=== PATIENT | female | born 1985 | race Caucasian/White ===

== ENCOUNTER → 2016-04-02 | Outpatient (CLI) | payer OTHER ==
[2016-04-02 15:08] LABS: CH 30.9; CHCM 33.8; HCT 43.1 % (34.0-46.0); HDW 2.53; HGB 14.2 gm/dL (11.4-16.0); MCH 30.2 pg (25.0-35.0); MCHC 32.9 g/dL (31.0-37.0); MCV 91.7 fL (80.0-100.0); Mean Platelet Volume 6.1; RDW 12.6 % (11.5-15.5); WBC 7.7 k/uL (3.8-10.6)
--- NOTE | 2016-04-02 15:12 | US ---
EXAMINATION TYPE: US OB <= 14 wk fetus DATE OF EXAM: 04/02/2016 2:35 PM COMPARISON: NONE CLINICAL HISTORY: Confirm Dates Z36. hx EXAM PERFORMED: Transabdominal (TA) EXAM MEASUREMENTS: GESTATIONAL AGE / DATING Dates by LMP: (8 weeks/2 days) EDC: 11/10/2016 Dates by Current Scan: (8 weeks/3 days) EDC: 11/09/2016 MATERNAL ANATOMY Uterus: 12.7 x 5.9 x 4.3 cm Right Ovary: 3.0 x 1.4 x 1.7 cm Left Ovary: 2.5 x 1.7 x 1.7 cm Post CDS / Adnexa: no free fluid Presence of free fluid: no Presence of corpus luteal cyst: yes- left= 2.0 x 1.6x 1.3 cm Presence of subchorionic bleed: no GESTATION / SURVEY CRL: 1.9 cm (8 weeks/3 days) MSD: not measured Yolk Sac (normal less than 6mm): 2.7 mm Heart Rate: 168 bpm Rhythm: normal IUP: Viable IUP Date 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 Estimated date of confinement based on this examination is 11/09/2016.
[2016-04-02 15:22] LABS: Glucose 99 mg/dL (74-99); Non-African American GFR(MDRD) >60 (>60 ml/min/1.73 sqM)
[2016-04-02 15:53] LABS: Hepatitis B Surface Ag Index 0.07
[2016-04-03 04:41] LABS: Toxoplasma Antibody (IgG) <3.0 IU/mL (<7.2)
[2016-04-03 07:22] LABS: HIV-1/HIV-2 Ab Screen NONREAC (NON REAC)
== END | disposition home or self-care (01) ==
LOC: RADUSWWP 14:15
PROVIDERS: ATTEND Obstetrics & Gynecology
DX: Z36 Encounter for antenatal screening of mother (principal); O26.811 Pregnancy related exhaustion and fatigue, first trimester; Z3A.08 8 weeks gestation of pregnancy
CPT/HCPCS: 76801; 82565; 82947; 85027; 86762; 86777; 86778; 86780; 86850; 86900; 86901; 87340; 87389

== ENCOUNTER 2016-11-04 05:44 | Inpatient (IN) | payer OTHER ==
[2016-10-30 08:53] VITALS: BMI 30.4
--- NOTE | 2016-11-03 10:41 | P.HPOB ---
History of Present Illness H&P Date: 11/03/16 Chief Complaint: Pt presents for repeat C/S This patient is a pleasant 31 year old female estimated date of confinement 11/10/2016 estimated gestational age 39 and 1/7 weeks who presents for repeat C/S. care has been uncomplicated. Review of Systems Constitutional: Denies chills, Denies fever Cardiovascular: Denies chest pain, Denies shortness of breath Respiratory: Denies cough Gastrointestinal: Reports heartburn Genitourinary: Reports Menstruation: Reports amenorrhea Past Medical History Past Medical History: GERD/Reflux, Hypertension (History of hypertension only on control) Additional Past Medical History / Comment(s): PAST HX OF HTN -STATES CAUSED BY CONTROL RX History of Any Multi-Drug Resistant Organisms: None Reported Past Surgical History: Section, Tonsillectomy Additional Past Surgical History / Comment(s): ORAL SURGERY Past Anesthesia/Blood Transfusion Reactions: Motion Sickness, Postoperative Nausea & Vomiting (PONV) Past Psychological History: No Psychological Hx Reported Smoking Status: Never smoker Past Alcohol Use History: None Reported Additional Past Alcohol Use History / Comment(s): NO ALCOHOL USE WHILE Past Drug Use History: None Reported - Past Family History Father Family Medical History: Hypertension Medications and Allergies Home Medications Medication Instructions Recorded Confirmed Type Calcium Carbonate [Tums] 750 mg PO DAILY PRN 10/30/16 10/30/16 History Famotidine [Pepcid AC] 10 mg PO BID PRN 10/30/16 10/30/16 History Vitamin 1 tab PO DAILY 10/30/16 10/30/16 History Ranitidine HCl [Zantac] 150 mg PO DAILY PRN 10/30/16 10/30/16 History Allergies Allergy/AdvReac Type Severity Reaction Status Date / Time Sulfa (Sulfonamide Allergy Unknown Verified 10/30/16 08:44 Antibiotics) Childhood Exam - OBG Physical Exam Abdomen: bowel sounds normal, no diffuse tenderness, no bruit present, no guarding noted, no hepatomegaly, no splenomegaly, no mass Vulva: both: normal Cervix: no lesion (Cervix in the office was closed.), no discharge Uterus: enlarged (Fundal height was 39 cm.) Results bloodwork: O positive, Rubella Immune, FTF-INA-LrcV neg, Toxo neg, Ultrasounds have been normal, glucola normal, GBS negative Assessment and Plan (1) Previous delivery affecting Narrative/Plan: This is a pleasant 31 yr female estimated gestational age 39 1/7 weeks who presents for a repeat section. Patient and I have discussed this surgery and risks: infection, bleeding, possible injury to bowel/bladder/ vessels and/or other organs, risk of DVT/PE. All of the patients' questions have been answered and a written consent obtained. Status: Acute
[2016-11-04] MEDS ORDERED: LACTATED RINGERS 1,000 ML IV ONE (05:52)
[2016-11-04] MEDS ORDERED: CITRIC ACID-SODIUM CITRATE 15 ML CUP PO ONE (05:52)
[2016-11-04] MEDS ORDERED: LACTATED RINGERS 1,000 ML IV SCH (05:52)
[2016-11-04 06:14] LABS: Basophils # (A) 0.1 k/uL (0-0.2); Basophils % (A) 1 %; CH 30.2; CHCM 34.4; Eosinophils # (A) 0.3 k/uL (0-0.7); Eosinophils % (A) 3 %; HDW 3.13; HGB 12.5 gm/dL (11.4-16.0); Luc # (Auto) 0.21; Luc % (Auto) 2; Lymphocytes # (A) 2.7 k/uL (1.0-4.8); Lymphocytes % (A) 27 %; MCHC 32.9 g/dL (31.0-37.0); MCV 88.1 fL (80.0-100.0); Mean Platelet Volume 7.2; Monocytes # (A) 0.4 k/uL (0-1.0); Monocytes % (A) 4 %; Neutrophils # (A) 6.1 k/uL (1.3-7.7); Neutrophils % (A) 63 %; RBC 4.31 m/uL (3.80-5.40); RDW 14.2 % (11.5-15.5); WBC 9.8 k/uL (3.8-10.6)
[2016-11-04] MEDS ORDERED: ceFAZolin 2 GM in SODIUM CHLORIDE 0.9% 100 ML IVPB ONE (07:15)
[2016-11-04] MEDS ORDERED: OXYTOCIN 10 UNIT/ML 1 ML VIAL ONE (07:50)
[2016-11-04] MEDS ORDERED: KETOROLAC 30 MG/ML 1 ML VIAL ONE (07:50)
[2016-11-04] MEDS ORDERED: MORPHINE SULFATE (PF) 0.3 MG/0.3 ML SYR ONE (07:50)
[2016-11-04] MEDS ORDERED: ONDANSETRON 4 MG/2 ML VIAL ONE (07:50)
[2016-11-04] MEDS ORDERED: diphenhydrAMINE 25 MG CAP PO PRN (08:35)
[2016-11-04] MEDS ORDERED: diphenhydrAMINE 50 MG/ML 1 ML VIAL IVP PRN (08:35)
[2016-11-04] MEDS ORDERED: ONDANSETRON 4 MG/2 ML VIAL IVP PRN (08:35)
[2016-11-04] MEDS ORDERED: NALOXONE 0.4 MG/ML 1 ML VIAL IV PRN (08:35)
[2016-11-04] MEDS ORDERED: ACETAMINOPHEN TAB 325 MG TAB PO PRN (08:35)
[2016-11-04] MEDS ORDERED: OXYTOCIN 20 UNITS/1000 ML NS 1,000 ML IV SCH (08:35)
[2016-11-04] MEDS ORDERED: ZOLPIDEM 5 MG TAB PO PRN (08:35)
[2016-11-04] MEDS ORDERED: SIMETHICONE 80 MG CHEWABLE PO PRN (08:35)
[2016-11-04] MEDS ORDERED: METOCLOPRAMIDE 5 MG/ML 2 ML VIAL IVP PRN (08:35)
[2016-11-04] MEDS: LACTATED RINGERS 1,000 ML IV SCH ×2 (12:04→18:51)
[2016-11-04] MEDS: KETOROLAC 30 MG/ML 1 ML VIAL IVP PRN ×2 (14:48→21:03)
[2016-11-04] MEDS: SENNOSIDES-DOCUSATE SODIUM 1 EACH TAB PO SCH ×2 (14:50→20:59)
--- NOTE | 2016-11-04 17:39 | P.OP ---
Date of Procedure: 11/04/16 Preoperative Diagnosis: #1: 39 and one sevenths weeks . #2: Previous section desires repeat Postoperative Diagnosis: Same Procedure(s) Performed: Repeat low transverse section Implants: Anesthesia: spinal Surgeon: Vickey Law Lead Javascript Engineer #1: Izabela Dominique Estimated Blood Loss (ml): 800 Pathology: other (Placenta) Condition: stable Disposition: floor Indications for Procedure: Please see dictated H&P for intimate details of this patient's admission. Brief summary this is a pleasant 31-year-old 2 para 1 female 39 and one sevenths weeks gestation who is admitted to labor and delivery for elective repeat section. Patient does understand the surgery and risks including risks of infection, bleeding, possible injury to bowel, bladder, vessels, and/or other organs. Patient understands risk of DVT and pulmonary embolism. All the patient's questions are answered and a written consent is obtained. Operative Findings: This was a vigorous viable male infant Apgars 9 and 9 delivery time is 0804 hrs. Description of Procedure: This patient has a Sam catheter placed to straight drain. She is subsequently taken to the operating room where she sat up and spinal anesthetic is administered without incident. With an adequate level of anesthesia, she has abdominal prep and drape. Scalpels then taken the previous Pfannenstiel incision is incised. A second scalpel is taken down the fascia. Fascia is scored with scalpel. Schmidt scissors were then used to extend the fascial incision bilaterally. Fascia is then dissected off the rectus muscles. The rectus muscles are and the peritoneum was identified and entered sharply. Peritoneal incision extended superior and inferior without difficulty. Bladder blade is then placed. Bladder peritoneum was taken off the lower uterine segment. A scalpel is then taken and a low transverse uterine incision is then made. Using a hemostat I enter the uterine cavity bluntly. Is loss of clear fluid. Incision extended bluntly. 's head is then guided through the incision with fundal pressure with delivery of infant's head. Mouth and nares are bulb suctioned and there is no evidence of a nuchal cord. With fundal pressure we then have delivery the rest this 's body. This is a vigorous viable male Apgars are 9 and 9 delivery time was 0804 hrs. After delivery of the infant the umbilical cord is doubly clamped and cut appears to be trivascular. Placenta is then manually extracted intact. Uterus is then externalized and uterine incision is then demarcated with Zimmer clamps. Uterine incision is closed using 0 Vicryl running fashion 2 layers. Excellent hemostasis is noted. Bladder peritoneum was then reapproximated using a 3-0 Vicryl. Excess fluid is removed from the abdomen and pelvis. Final inspection of the uterine incision shows to be hemostatic. The parietal peritoneum was then closed using a 3-0 Vicryl. Rectus muscles reapproximated using 0 Vicryl interrupted fashion. Fascial incision is then closed using 0 PDS in a running fashion. Fascial incision is intact and hemostatic. Subcutaneous tissues and closed using a 3-0 Vicryl. The skin is then reapproximated using yamel. All counts are correct 3. There are no complications. and mother are taken of birthing suite in satisfactory condition.
[2016-11-05] MEDS: KETOROLAC 30 MG/ML 1 ML VIAL IVP PRN (03:46)
[2016-11-05 06:36] LABS: Basophils % (A) 0 %; CHCM 33.2; Eosinophils # (A) 0.3 k/uL (0-0.7); Eosinophils % (A) 3 %; HCT 31.1 % (34.0-46.0); HDW 3.04; HGB 10.4 gm/dL (11.4-16.0); Luc # (Auto) 0.18; Luc % (Auto) 2; Lymphocytes # (A) 1.8 k/uL (1.0-4.8); Lymphocytes % (A) 20 %; MCH 29.3 pg (25.0-35.0); MCHC 33.3 g/dL (31.0-37.0); MCV 87.8 fL (80.0-100.0); Mean Platelet Volume 6.6; Monocytes # (A) 0.4 k/uL (0-1.0); Monocytes % (A) 4 %; Neutrophils # (A) 6.5 k/uL (1.3-7.7); Neutrophils % (A) 71 %; RBC 3.54 m/uL (3.80-5.40); RDW 13.5 % (11.5-15.5); WBC 9.1 k/uL (3.8-10.6); WBC (Perox) 9.61
--- NOTE | 2016-11-05 06:45 | P.PNOBGPC ---
Subjective - Subjective Patient reports: Reports appetite normal, Reports voiding normally, Reports pain well controlled, Reports ambulating normally : doing well Objective - Vital Signs Latest vital signs: Vital Signs Temp Pulse Resp BP Pulse Ox 11/05/16 04:00 97.7 F 60 18 102/77 99 11/05/16 00:00 97.5 F L 67 18 105/74 99 11/04/16 20:00 98.6 F 70 16 119/78 11/04/16 17:33 98.2 F 63 18 108/73 98 11/04/16 12:00 97.6 F 79 16 100/65 11/04/16 10:30 67 16 99/63 11/04/16 10:00 62 16 105/63 11/04/16 09:30 97.5 F L 60 18 110/71 100 11/04/16 09:15 74 110/66 11/04/16 09:00 96.5 F L 69 18 105/58 100 11/04/16 08:45 82 103/58 11/04/16 08:30 97.1 F L 83 16 122/55 100 Intake and Output 11/04/16 11/04/16 11/05/16 14:59 22:59 06:59 Intake Total 1050 Output Total 1050 1200 Balance 0 -1200 Intake: IV 1000 Oxytocin 20 Units/1000 ml 1000 Ns 1,000 ml @ Per Protocol IV .Q0M ELAINE Rx#: [id number] Oral 50 Output: Urine 250 1200 Estimated Blood Loss 800 Other: Voiding Method Toilet # Voids 2 2 - Exam Lungs: bilateral: normal Chest: Normal S1, Normal S2 Extremities: Present: normal Abdomen: Present: normal appearance, soft. Absent: distention, tenderness Incision: Present: normal, dry, intact Uterus: Present: normal, firm - Labs Labs: Abnormal Lab Results - Last 24 Hours (Table) 11/05/16 Range/Units 06:25 RBC 3.54 L (3.80-5.40) m/uL Hgb 10.4 L (11.4-16.0) gm/dL Hct 31.1 L (34.0-46.0) % Assessment and Plan (1) Previous delivery affecting Narrative/Plan: Post operative day #1. Patient is resting without complaints. Vital signs are stable she's afebrile. Her uterus is firm nontender and her incision is intact and dry. Patient is ambulating, urinating, and tolerating regular diet. Hemoglobin today is 10.6. My impression this is a normal post operative course. Plan is to allow the patient to shower, encourage ambulation, continue routine postoperative care. Current Visit: Yes Status: Acute Code(s): O34.219 - MATERNAL CARE FOR UNSP TYPE SCAR FROM PREVIOUS DEL SNOMED Code(s): 721924021
--- NOTE | 2016-11-05 08:38 | P.PN ---
Progress Note - Text Date: 11/05/2016 Time: 706 The patient is status post section Vital signs stable VAS: 0-10 Patient has no complaints of pain. The patient incurred some minimal itching yesterday, this itching is now subsiding. Pain meds to be managed by service.
[2016-11-05] MEDS: SENNOSIDES-DOCUSATE SODIUM 1 EACH TAB PO SCH ×2 (09:06→19:27)
[2016-11-05] MEDS: IBUPROFEN 600 MG TAB PO PRN ×3 (10:17→22:34)
[2016-11-05] MEDS ORDERED: Acetaminophen-Codeine 300-30mg TAB PO PRN (12:49)
[2016-11-05] MEDS: Acetaminophen-Codeine 300-30mg TAB PO PRN (19:26)
[2016-11-06] MEDS: Acetaminophen-Codeine 300-30mg TAB PO PRN (02:43)
[2016-11-06 04:41] VITALS: BP 107/70; PULSE 67; RESP 18; TEMP 97.9
--- NOTE | 2016-11-06 06:39 | P.PNOBGPC ---
Subjective - Subjective Patient reports: Reports appetite normal, Reports voiding normally, Reports pain well controlled, Reports ambulating normally : doing well Objective - Vital Signs Latest vital signs: Vital Signs Temp Pulse Resp BP Pulse Ox 11/06/16 04:00 97.9 F 67 18 107/70 96 11/05/16 20:00 98.1 F 72 16 123/79 100 11/05/16 16:00 98.4 F 67 18 116/71 100 11/05/16 08:00 97.6 F 69 19 108/69 100 Intake and Output 11/05/16 11/05/16 11/06/16 14:59 22:59 06:59 Other: # Voids 1 1 2 - Exam Lungs: bilateral: normal Chest: Normal S1, Normal S2 Extremities: Present: normal Abdomen: Present: normal appearance, soft. Absent: distention, tenderness Incision: Present: normal, dry, intact Uterus: Present: normal, firm - Labs Labs: Abnormal Lab Results - Last 24 Hours (Table) 11/05/16 Range/Units 06:25 RBC 3.54 L (3.80-5.40) m/uL Hgb 10.4 L (11.4-16.0) gm/dL Hct 31.1 L (34.0-46.0) % Assessment and Plan (1) Previous delivery affecting Narrative/Plan: Postoperative day #2. Patient is resting without complaints and wishes to go home. Vital signs are stable and she is afebrile. Uterus is firm nontender and her incision is intact and dry. My impression is that she is stable for discharge home. We'll continue routine postoperative care and discharge home later this morning. Current Visit: Yes Status: Acute Code(s): O34.219 - MATERNAL CARE FOR UNSP TYPE SCAR FROM PREVIOUS DEL SNOMED Code(s): 002000216
--- NOTE | 2016-11-06 06:43 | P.DS ---
Providers Date of admission: 11/04/16 05:44 Expected date of discharge: 11/06/16 Attending physician: Vickey Law Primary care physician: Marquis Jones - Discharge Diagnosis(es) (1) Previous delivery affecting Current Visit: Yes Status: Acute Hospital Course: Please see dictated H&P for intimate details of this patient's admission. Brief summary this is a pleasant 31-year-old 2 para 1 female 39 and one sevenths weeks gestation who is admitted to labor and delivery for elective repeat section. Patient is admitted and has repeat for a viable male infant please see dictated operative note. By postoperative #2 patient's felt to be stable for discharge home follow up with me in 1 week. Procedures: Repeat low transverse section Patient Condition at Discharge: Good Plan - Discharge Summary New Discharge Prescriptions: New Acetaminophen-Codeine 300-30mg [Tylenol w/codeine #3] 1 - 2 each PO Q4HR PRN #30 tab PRN Reason: Pain 1-5 Ibuprofen [Motrin] 600 mg PO Q6HR PRN #40 tab PRN Reason: Mild Pain Or Fever >= 100.5 No Action Ranitidine HCl [Zantac] 150 mg PO DAILY PRN PRN Reason: Heartburn Calcium Carbonate [Tums] 750 mg PO DAILY PRN PRN Reason: Heartburn Vitamin 1 tab PO DAILY Famotidine [Pepcid AC] 10 mg PO BID PRN PRN Reason: Heartburn Discharge Medication List Calcium Carbonate [Tums] 750 mg PO DAILY PRN 10/30/16 [History] Famotidine [Pepcid AC] 10 mg PO BID PRN 10/30/16 [History] Vitamin 1 tab PO DAILY 10/30/16 [History] Ranitidine HCl [Zantac] 150 mg PO DAILY PRN 10/30/16 [History] Acetaminophen-Codeine 300-30mg [Tylenol w/codeine #3] 1 - 2 each PO Q4HR PRN # 30 tab 11/06/16 [Rx] Ibuprofen [Motrin] 600 mg PO Q6HR PRN #40 tab 11/06/16 [Rx] Follow up Appointment(s)/Referral(s): Viceky Law MD [STAFF PHYSICIAN] - 11/10/16 1:30 pm (Patient also has a appointment on December 15 at 11:15.) Patient Instructions/Handouts: (DC) Activity/Diet/Wound Care/Special Instructions: No strenuous activities or heavy lifting for 6 weeks. No intercourse or anything per vagina for 6 weeks. Please call if any fevers, chills, excessive vaginal bleeding, and/or abdominal pain. Discharge Disposition: HOME SELF-CARE
[2016-11-06] MEDS: SENNOSIDES-DOCUSATE SODIUM 1 EACH TAB PO SCH (08:20)
[2016-11-06] MEDS: IBUPROFEN 600 MG TAB PO PRN (08:22)
== END 2016-11-06 12:00 | disposition home or self-care (01) | DRG 766 ==
LOC: 4FBP 05:44
PROVIDERS: ADMIT Obstetrics & Gynecology; ATTEND Obstetrics & Gynecology
PROC: 10D00Z1 Extraction of Products of Conception, Low, Open Approach (ICD-10-PCS; principal; 2016-11-04 08:00)
DX: O34.211 Maternal care for low transverse scar from previous cesarean delivery (principal); K21.9 Gastro-esophageal reflux disease without esophagitis; Z37.0 Single live birth; Z3A.39 39 weeks gestation of pregnancy; O99.62 Diseases of the digestive system complicating childbirth; Z79.899 Other long term (current) drug therapy
CPT/HCPCS: 85025; 86850; 86900; 86901; 88307

== ENCOUNTER 2019-01-31 10:36 | Day surgery (SDC) | payer BC, OTHER ==
[2019-01-25 14:03] VITALS: BMI 28.3
[~2019-01-31 10:36] MED LIST: LACTATED RINGERS 1,000 ML IV SCH; LIDOCAINE 1% 20 ML VIAL (10MG/ML) FOR IV START INTRADERMA PRN
[2019-01-31 11:03] VITALS: TEMP 98
[2019-01-31] MEDS ORDERED: LIDOCAINE 1% INJ 10MG/ML (20 ML MDV) ONE (11:59)
[2019-01-31] MEDS ORDERED: PROPOFOL 10 MG/ML 20 ML VIAL IV ONE (11:59)
--- NOTE | 2019-01-31 12:37 | P.PCN ---
Date of Procedure: 01/31/19 Description of Procedure: Brief history: Patient is a pleasant scheduled for an elective upper endoscopy as well as colonoscopy as a part of evaluation of symptoms of esophageal dysphagia, GERD and altered bowel habits with patient reporting loose to soft bowel movements with some urgency. No prior endoscopic evaluations reported. Does have a family history of ulcerative colitis in her sister. Procedure performed: Esophagogastroduodenoscopy with biopsy Colonoscopy with biopsy Estimated blood loss: Minimal. Preoperative diagnosis: Esophageal dysphagia, GERD, altered bowel function, blood per rectum Anesthesia: MAC Procedure: After informed consent was obtained from the patient was brought into the endoscopy unit and IV sedation was administered by anesthesia under continuous monitoring. Initially upper endoscopy was done. The Olympus GF 190 video endoscope was inserted into the mouth and esophagus intubated without any difficulty and was gradually advanced into the stomach and duodenum and carefully examined. The bulb and second part of the duodenum appeared normal with biopsies taken to rule out celiac sprue. The scope was then withdrawn into the stomach adequately insufflated with air and upon careful examination the antrum and body, cardia and fundus appeared normal except for some mild punctate erythema suggestive of mild gastritis with biopsies taken. The scope was then withdrawn into the esophagus. The GE junction was located at 36 cm to the incisors with biopsies taken to rule out reflux esophagitis. It appeared regular with no erythema erosions or ulcerations. Rest of the esophagus appeared normal with mid esophageal biopsies taken to rule out eosinophilic esophagitis. Patient tolerated the procedure well. At this time the patient continued to remain sedation. Initial digital rectal examination was normal. Olympus CF 190 video colonoscope was then inserted into the rectum and gradually advanced to the cecum without any difficulty. Careful examination was performed as the scope was gradually being withdrawn. The prep was excellent. The cecum, ascending colon, transverse colon, descending colon, sigmoid colon and rectum appeared normal with biopsies taken of the right and left colon given altered bowel function. The terminal ileum was also intubated and appeared normal with biopsies taken. Retroflexion was performed in the rectum and no lesions were noted., Low-grade internal hemorrhoids noted Patient tolerated the procedure well. Impression: 1. Mild gastritis antrum and body, biopsied. Biopsies of the duodenum, GE junction and mid esophagus. 2. Normal-appearing colon from rectum to cecum with normal-appearing terminal ileum, and random biopsies taken of the right colon, left colon and terminal ileum given altered bowel function. Recommendations: Findings of this examination were discussed with the patient as well as her . Okay to resume diet. Okay to resume medications. Await pathology from biopsies. Follow up in gastroenterology clinic as previously scheduled.
[2019-01-31 13:04] VITALS: BP 116/80; PULSE 50; RESP 15
== END 2019-01-31 13:19 | disposition home or self-care (01) ==
LOC: ORWHC2ENDO 10:36
PROVIDERS: ATTEND Internal Medicine
DX: K29.50 Unspecified chronic gastritis without bleeding (principal); K31.89 Other diseases of stomach and duodenum; K21.9 Gastro-esophageal reflux disease without esophagitis; K52.82 Eosinophilic colitis; I10 Essential (primary) hypertension; Z88.2 Allergy status to sulfonamides; Z91.040 Latex allergy status; Z79.899 Other long term (current) drug therapy; Z90.89 Acquired absence of other organs; Z83.79 Family history of other diseases of the digestive system
CPT/HCPCS: 81025; 45380; 43239; J2001; J2704; 88304; 88305